=== PATIENT | female | born 1995 | race Caucasian/White ===

== ENCOUNTER 2016-04-06 13:56 | Observation (INO) ==
--- NOTE | 2016-04-06 15:13 | Emergency Department Note ---
Disposition Clinical Impression: UTI (urinary tract infection) Qualifiers: Urinary tract infection type: acute cystitis Hematuria presence: without hematuria Qualified Code(s): N30.00 - Acute cystitis without hematuria Qualifiers: Weeks of gestation: 10 weeks Qualified Code(s): Z3A.10 - 10 weeks gestation of Disposition: Admitted As Inpatient Referrals: Cristin Zhu REFRIGERATOR GLAZIER [Primary Care Provider] - Forms: Work/School Release, ED Satisfaction Letter Time of Disposition: 15:16 General Adult HPI - General Chief complaint: ED Abdominal Pain Stated complaint: needing IV ATB? got a call from someone Time Seen by Provider: 04/06/16 15:11 Source: patient Mode of arrival: ambulatory Limitations: no limitations Nursing Notes Reviewed: Yes Vital Signs Reviewed: Yes - History of Present Illness HPI Narrative: 20-year-old who is 10 weeks who was seen here for abdominal discomfort a few days back and had a urine culture done throughout pseudomonas aeruginosa. Consultation was obtained with STUDENT DEVELOPMENT COORDINATOR doctor Jennifer once the patient to receive ceftazidime 2 g Q8 HR. Onset (ago): day(s) Pain Scale: 0 - Related Data Home Medications Medication Instructions Recorded Confirmed TraMADol 08/03/15 Previous Rx's Medication Instructions Recorded OxyCODONE/APAP 5/325 [Percocet 1 each PO Q6HR PRN #10 tablet 08/03/15 5/325] Cephalexin [Keflex] 500 mg PO BID 10 Days 03/15/16 Allergies Allergy/AdvReac Type Severity Reaction Status Date / Time No Known Allergies Allergy Verified 03/15/16 03:01 Constitutional: Denies: fever, chills, weakness, weight change Eyes: Denies: eye pain, eye discharge, vision change ENT ED: Denies: ear pain, throat pain, dental pain, hearing loss, epistaxis, congestion, dysphagia Cardiovascular: Denies: chest pain, palpitations, dyspnea on exertion, edema, syncope Respiratory: Denies: cough, dyspnea, wheezes, hemoptysis, stridor Gastrointestinal: Denies: abdominal pain, nausea, vomiting, diarrhea, constipation, hematemesis, melena, hematochezia Genitourinary: Denies: dysuria, frequency, hematuria, discharge Musculoskeletal: Denies: back pain, neck pain, arthralgia, myalgia Integumentary: Denies: rash, abrasion, lesions Neurological: Denies: headache, weakness, numbness, paresthesias, confusion, abnormal gait, vertigo Psychiatric: Denies: anxiety, depression, suicidal thoughts, homicidal thoughts , auditory hallucinations, visual hallucinations Endocrine: Denies: fatigue Hematological/Lymphatic: Denies: easy bleeding, easy bruising Allergic/Immunologic: Denies: facial swelling, urticaria Past Medical History - Past Medical History Medical history: Reports: no medical history Psychiatric history: Reports: no psych history STUDENT DEVELOPMENT COORDINATOR history: Reports: no STUDENT DEVELOPMENT COORDINATOR history - Social History Smoking Status: Current every day smoker Smokeless Tobacco Status: No Alcohol use: Reports: none Drug use: Reports: none Physical Exam - General Limitations: no limitations General appearance: alert, in no apparent distress - Head Head exam: atraumatic, normocephalic, normal inspection - Eye Eye exam: Present: normal appearance, PERRL, EOMI - ENT ENT exam: normal exam, normal oropharynx, mucous membranes moist - Neck Neck exam: Present: normal inspection, full ROM, trachea midline - Chest Chest inspection: Present: normal inspection, symmetric chest wall rise - Respiratory Respiratory exam: Present: normal lung sounds bilaterally - Cardiovascular Cardiovascular exam: Present: regular rate, normal rhythm, normal heart sounds - Abdominal Exam Abdominal exam: Present: soft, Non-Tender. Absent: tenderness, distention, guarding, rebound, rigidity - Extremities Exam Extremities exam: Present: normal inspection, full ROM. Absent: tenderness, pedal edema - Expanded Lower Extremity Exam Neurovascular/Tendon exam: Absent: motor deficit, sensory deficit, tendon deficit Gait: observed and normal - Back Exam Back exam: Present: normal inspection, full ROM. Absent: tenderness - Neurological Exam Neurological exam: Present: alert, oriented X3 - Psychiatric Psychiatric exam: Present: normal affect, normal mood - Skin Skin exam: Present: warm, dry, intact, normal color Course - Reevaluation(s) Reevaluation #1: This is a 20-year-old who is approximately 10 weeks who had a urine culture done a couple days ago grew out pseudomonas aeruginosa's. STUDENT DEVELOPMENT COORDINATOR once the patient admitted for IV ceftazadine. Time: 15:15 - Consultations Consultation #1: Discussed with Dr. Rodriguez, admit to hospitalist. Time: 15:00 Consultation #2: Discussed with Dr. Ramos, admit. Time: 15:15 Vital Signs Temperature 98.7 F 01/24/17 14:22 Pulse Rate 84 04/06/16 14:22 Respiratory Rate 18 04/06/16 14:22 Blood Pressure 116/79 04/06/16 14:22 O2 Sat by Pulse Oximetry 99 04/06/16 14:22 Temperature 98.7 F 04/06/16 14:22 Pulse Rate 77 04/06/16 16:21 Respiratory Rate 18 04/06/16 14:22 Blood Pressure 110/70 04/06/16 16:21 O2 Sat by Pulse Oximetry 100 04/06/16 16:21 Oxygen Delivery Oxygen Delivery Room Air Medical Decision Making - Lab Data Result diagrams: 04/06/16 15:29 04/06/16 15:29 Lab Results 04/06/16 04/06/16 Range/Units 15:29 15:29 WBC 8.0 (4.3-11.1) K/mcL RBC 4.02 (3.82-4.97) M/mcL Hgb 12.3 (11.5-15.4) g/dL Hct 36.4 (35.3-44.9) % MCV 90.5 (83.0-100.0) fL MCH 30.6 (28.0-33.3) pg MCHC 33.8 (31.6-35.5) g/dL RDW 12.1 (11.5-14.5) % Plt Count 228 (140-400) K/mcL MPV 10.8 (9.4-12.4) fL Immature Gran % 0.4 (0-4) % Seg Neutrophils % 63.9 % Lymphocytes % 22.5 % Monocytes % 7.7 % Eosinophils % 5.0 % Basophils % 0.5 % Neutrophils # 5.1 (1.6-8.9) K/mcL Lymphocytes # 1.8 (0.6-4.6) K/mcL Monocytes # 0.6 (0.0-1.3) K/mcL Eosinophils # 0.4 (0.0-0.6) K/mcL Basophils # 0.0 (0.0-0.2) K/mcL Sodium 138 (136-145) mEq/L Potassium 3.5 (3.5-4.5) mEq/L Chloride 106 (98-109) mEq/L Carbon Dioxide 20 (19-29) mEq/L BUN 6 L (7-20) mg/dL Creatinine 0.60 (0.57-1.11) mg/dL Est GFR ( Amer) > 60 (> 60) Est GFR (Non-Af Amer) > 60 (> 60) BUN/Creatinine Ratio 10 (6-26) Glucose 86 (70-99) mg/dL Calculated Osmolality 283 (280-300) Calcium 9.3 (8.6-10.8) mg/dL
[2016-04-06 15:37] LABS: Basophils % 0.5 %; Eosinophils # 0.4 K/mcL (0.0-0.6); Hematocrit 36.4 % (35.3-44.9); Hemoglobin 12.3 g/dL (11.5-15.4); Immature Granulocytes % 0.4 % (0-4); Lymphocytes # 1.8 K/mcL (0.6-4.6); Lymphocytes % 22.5 %; Mean Corpuscular HGB Conc 33.8 g/dL (31.6-35.5); Mean Corpuscular Hemoglobin 30.6 pg (28.0-33.3); Mean Corpuscular Volume 90.5 fL (83.0-100.0); Mean Platelet Volume 10.8 fL (9.4-12.4); Monocytes # 0.6 K/mcL (0.0-1.3); Monocytes % 7.7 %; Neutrophils # 5.1 K/mcL (1.6-8.9); Platelet Count 228 K/mcL (140-400); Red Blood Count 4.02 M/mcL (3.82-4.97); Red Cell Distribution Width 12.1 % (11.5-14.5); Segmented Neutrophils % 63.9 %
[2016-04-06 15:50] LABS: BUN/Creatinine Ratio 10 (6-26); Blood Urea Nitrogen 6 mg/dL (7-20); Calcium 9.3 mg/dL (8.6-10.8); Carbon Dioxide 20 mEq/L (19-29); Chloride 106 mEq/L (98-109); Glucose 86 mg/dL (70-99); Osmolality,Calculated 283 (280-300); Potassium 3.5 mEq/L (3.5-4.5); Sodium 138 mEq/L (136-145); eGFR For African Americans > 60 (> 60); eGFR For Non-African Americans > 60 (> 60)
--- NOTE | 2016-04-06 17:21 | Internal Med History&Physical ---
Date of Encounter: 04/06/16 Time of Encounter: 17:21 Assessment and Plan (1) Abdominal pain affecting Current visit: No Status: Acute Patient developed daily intermittent lower abdominal pain 3 weeks ago. This could be secondary to multiple episodes of UTI. Will monitor response to antibiotics. (2) UTI (urinary tract infection) Current visit: Yes Status: Acute Complicated UTI due to . Recurrent UTI. 04/04/16: Urine culture grew susceptible Pseudomonas. Failed oral Keflex as outpatient. Dr. Rodriguez was called by ED physician, and recommended to start patient on Ceftazidime IV. Continue IV Ceftazidime for 1-2 days and then may switch to oral antibiotic. 20-year-old female admitted with complicated UTI due to , she will require IV antibiotics. Place in observation services. Qualifiers: Urinary tract infection type: acute cystitis Hematuria presence: without hematuria Qualified Code(s): N30.00 - Acute cystitis without hematuria (3) Current visit: Yes Status: Acute Patient is 10 weeks . Continue multivitamins. She follows up with Dr. Rodriguez. Will get further consultation Dr. Rodriguez to morning hospitalist. Qualifiers: Weeks of gestation: 10 weeks Qualified Code(s): Z3A.10 - 10 weeks gestation of (4) Tobacco abuse Current visit: Yes Status: Acute Patient counseled to quit smoking. She agrees. Internal Medicine - H&P: HPI Chief complaint: Abnormal urine culture and Lower abdominal pain for 2 weeks. Admitted From: Home Plans for Post Hospital Care: Home History of present illness: Ms. Chand is a 20 year old female with history of daily a smoking and who is currently 10 weeks . On March 15, patient presented to our ER with a chief complaint of lower abdominal pain. She was found to have have Escherichia coli UTI and was treated for that. Her abdominal pain persisted and 2 days ago she came again tell her ER. At that time she had urine culture done and was sent home on Keflex, tramadol and Percocet. Patient was called today after urine culture came back positive for curry susceptible Pseudomonas. She continues to have intermittent daily lower abdominal pain that lasts less than an hour. She developed nausea and vomiting during her and they have not changed in the past few days. No fever. No flank pain. Chills. No night sweats. No bleeding. No use of IV drugs. Past Med Surg Social Fam HX - Past Medical History Medical history: no medical history Psychiatric history: no psych history - Social History Smoking Status: Current every day smoker Smokeless Tobacco Status: No Alcohol use: none Drug use: none - Family History Mother Hx Family Endocrine Disorder: Yes (Diabetes.) Internal Medicine - H&P: Meds Pnv No.122/Iron/Folic Acid [ Multi Tablet] 1 tab PO DAILY 04/06/16 [ History] Allergies No Known Allergies Allergy (Verified 03/15/16 03:01) All Systems PM: A 10-system review of systems was performed and is negative for pertinent findings except as documented above in the HPI. - Constitutional Vitals: Temp Pulse Resp BP Pulse Ox 98.7 F 77 18 110/70 100 04/06/16 14:22 04/06/16 16:21 04/06/16 14:22 04/06/16 16:21 04/06/16 16:21 General appearance: Present: cooperative, A&O X 3, pleasant, no acute distress, answers questions appropriately - Head Head exam: Present: atraumatic, normocephalic - Eye Eye exam: Present: PERRL, sclera anicteric - ENT ENT exam: Present: mucous membranes moist - Neck Neck exam general surgery: Present: supple, trachea midline. Absent: lymphadenopathy - Respiratory Respiratory exam: Present: CTAB - Cardiovascular Cardiovascular exam: Present: RRR. Absent: systolic murmur - GI/Abdominal GI/Abdominal exam: Present: normal bowel sounds, soft, tenderness. Absent: distended - Extremities Exam Extremities exam: Present: radial pulses palpable and symetrical. Absent: pedal edema, tenderness - Back Exam Back exam: Present: normal inspection. Absent: CVA tenderness (L), CVA tenderness (R), muscle spasm - Neurological Exam Neurological exam: Present: alert, oriented X3, no focal deficits, strengths equal and symetr throughout. Absent: facial droop, speech deficit - Skin Additional comments: Multiple tattoos on her arms, back, and legs. She has a piercing on her medical site. No signs of infection. No rash. Internal Med - H&P Results - Labs CBC & Chem 7: 04/06/16 15:29 04/06/16 15:29 Labs: Short CBC 04/06/16 Range/Units 15:29 WBC 8.0 (4.3-11.1) K/mcL Hgb 12.3 (11.5-15.4) g/dL Hct 36.4 (35.3-44.9) % Plt Count 228 (140-400) K/mcL Neutrophils # 5.1 (1.6-8.9) K/mcL BMP 04/06/16 15:29 Sodium 138 Potassium 3.5 Chloride 106 Carbon Dioxide 20 BUN 6 L Creatinine 0.60 Glucose 86 Calcium 9.3
[2016-04-06] MEDS ORDERED: Acetaminophen 325 MG TABLET PO PRN (17:42)
[2016-04-06] MEDS ORDERED: 0.9 % Sodium Chloride 1,000 ML IVC SCH (17:45)
[2016-04-07 05:20] LABS: Basophils % 0.3 %; Eosinophils # 0.3 K/mcL (0.0-0.6); Eosinophils % 4.2 %; Hemoglobin 11.5 g/dL (11.5-15.4); Immature Granulocytes % 0.3 % (0-4); Lymphocytes # 2.7 K/mcL (0.6-4.6); Lymphocytes % 34.9 %; Mean Corpuscular HGB Conc 33.8 g/dL (31.6-35.5); Mean Corpuscular Hemoglobin 30.7 pg (28.0-33.3); Mean Corpuscular Volume 90.7 fL (83.0-100.0); Mean Platelet Volume 11.3 fL (9.4-12.4); Monocytes # 0.6 K/mcL (0.0-1.3); Monocytes % 7.5 %; Neutrophils # 4.1 K/mcL (1.6-8.9); Platelet Count 225 K/mcL (140-400); Red Blood Count 3.75 M/mcL (3.82-4.97); Red Cell Distribution Width 12.1 % (11.5-14.5); Segmented Neutrophils % 52.8 %
[2016-04-07 05:33] LABS: BUN/Creatinine Ratio 10 (6-26); Blood Urea Nitrogen 6 mg/dL (7-20); Calcium 8.8 mg/dL (8.6-10.8); Carbon Dioxide 19 mEq/L (19-29); Chloride 108 mEq/L (98-109); Glucose 100 mg/dL (70-99); Magnesium 1.7 mg/dL (1.6-2.6); Osmolality,Calculated 282 (280-300); Phosphorous 3.1 mg/dL (2.3-4.7); Potassium 3.5 mEq/L (3.5-4.5); Sodium 137 mEq/L (136-145); eGFR For African Americans > 60 (> 60); eGFR For Non-African Americans > 60 (> 60)
[2016-04-07] MEDS ORDERED: Prenatal Vit/FA 1 EACH TABLET PO SCH (09:00)
[2016-04-07 15:30] VITALS: BP 105/69
--- NOTE | 2016-04-07 16:55 | Discharge Summary ---
Date of Encounter: 04/07/16 Time of Encounter: 16:52 - Discharge Medications Prescriptions: Cefdinir [Omnicef] 300 mg PO BID #6 capsule Home Medications: Pnv No.122/Iron/Folic Acid [ Multi Tablet] 1 tab PO DAILY 04/06/16 [ History] Cefdinir [Omnicef] 300 mg PO BID #6 capsule 04/07/16 [Rx] Allergies/Adverse Reactions: Allergies No Known Allergies Allergy (Verified 03/15/16 03:01) Date of admission: 04/06/16 17:12 Primary care physician: Cristin Zhu CNP Discharging clinician: Dean Mckeon Anticipated date of discharge: 04/07/16 - Patient Status Disposition: Home, Self-Care Condition: Fair Functional capacity at discharge: independent ambulation Overall status at discharge: patient is back to baseline - Discharge Instructions Instructions: Cefdinir (By mouth), Urinary Tract Infection in Women (DC) Follow Up With: Cristin Zhu CNP [Primary Care Provider] - Forms: Work/School Release - Diet and Activity Activity: resume usual activities as tolerated Diet: advance to your usual diet Interval History: Ms. Chand is a 20 year old female with history of daily a smoking and who is currently 10 weeks . On March 15, patient presented to our ER with a chief complaint of lower abdominal pain. She was found to have have Escherichia coli UTI and was treated for that. Her abdominal pain persisted and 2 days ago she came again tell her ER. At that time she had urine culture done and was sent home on Keflex, tramadol and Percocet. Patient was called today after urine culture came back positive for curry susceptible Pseudomonas. She continues to have intermittent daily lower abdominal pain that lasts less than an hour. She developed nausea and vomiting during her and they have not changed in the past few days. No fever. No flank pain. Chills. No night sweats. No bleeding. No use of IV drugs. Hospital course: She was admitted for asymptomatic bacteriuria, urine culture grew Pseudomonas which was pansensitive. This was discussed with OB attending in-house, she was started on IV ceftazidime , she received 2 doses of IV ceftazidime while inpatient. She remained hemodynamically stable, afebrile, no leukocytosis and no urinary symptoms. Given history of recurrent UTI in the past and status, will treat asymptomatic bacteriuria with 3 more additional days of oral cefdinir. Patient is stable to be discharged home on oral antibiotics. Patient will follow up with her OB doctor as outpatient. Time spent discussing smoking cessation with patient: more than 10 minutes - Time Spent with Patient Total time spent providing and/or coordinating discharge services: Greater than 30 minutes - Constitutional Vitals: Temp Pulse Resp BP Pulse Ox 98.3 F 73 17 105/69 99 04/07/16 15:28 04/07/16 15:28 04/07/16 15:28 04/07/16 15:28 04/07/16 15:28 General appearance: Present: cooperative, A&O X 3, pleasant, no acute distress, answers questions appropriately Exam: General appearance: Present: cooperative, A&O X 3, pleasant, no acute distress, answers questions appropriately - Head Head exam: Present: atraumatic, normocephalic - Eye Eye exam: Present: PERRL, sclera anicteric - ENT ENT exam: Present: mucous membranes moist - Neck Neck exam general surgery: Present: supple, trachea midline. Absent: lymphadenopathy - Respiratory Respiratory exam: Present: CTAB - Cardiovascular Cardiovascular exam: Present: RRR. Absent: systolic murmur - GI/Abdominal GI/Abdominal exam: Present: normal bowel sounds, soft, tenderness. Absent: distended - Extremities Exam Extremities exam: Present: radial pulses palpable and symetrical. Absent: pedal edema, tenderness - Back Exam Back exam: Present: normal inspection. Absent: CVA tenderness (L), CVA tenderness (R), muscle spasm - Neurological Exam Neurological exam: Present: alert, oriented X3, no focal deficits, strengths equal and symetr throughout. Absent: facial droop, speech deficit - Skin Additional comments: Multiple tattoos on her arms, back, and legs. She has a piercing on her medical site. No signs of infection. No rash.
== END 2016-04-07 17:30 | disposition home or self-care (01) ==
LOC: 3BNU 13:56 → EMEROO 13:56 → SUATTDRO 17:12 → 3BNU 18:40
PROVIDERS: ADMIT Internal Medicine; ATTEND Internal Medicine Endocrinology, Diabetes & Metabolism

== ENCOUNTER → 2016-09-21 14:48 | Observation (INO) ==
[2016-09-21 13:53] LABS: Basophils % 0.3 %; Eosinophils # 0.1 K/mcL (0.0-0.6); Eosinophils % 0.8 %; Hemoglobin 11.1 g/dL (11.5-15.4); Lymphocytes # 2.4 K/mcL (0.6-4.6); Lymphocytes % 17.5 %; Mean Corpuscular HGB Conc 33.6 g/dL (31.6-35.5); Mean Corpuscular Hemoglobin 31.6 pg (28.0-33.3); Mean Platelet Volume 11.2 fL (9.4-12.4); Monocytes # 0.7 K/mcL (0.0-1.3); Neutrophils # 10.2 K/mcL (1.6-8.9); Platelet Count 206 K/mcL (140-400); Red Blood Count 3.51 M/mcL (3.82-4.97); Red Cell Distribution Width 12.4 % (11.5-14.5); Segmented Neutrophils % 75.4 %
[2016-09-21 13:54] LABS: Bilirubin,Urine Negative (Negative); Blood,Urine Negative (Negative); Color,Urine Yellow (Yellow); Glucose,Urine (UA) Normal (Normal); Ketones,Urine Negative (Negative); Leukocyte Esterase,Urine Trace (Negative); Nitrite,Urine Negative (Negative); Protein,Urine Negative (Neg-Trace); Specific Gravity,Urine 1.019 (1.010-1.025); Urobilinogen,Urine Normal (Normal)
[2016-09-21 13:57] LABS: Bacteria,Urine None Seen per hpf (None-Few); Hyaline Casts,Urine None Seen per lpf (None-Few); RBC,Urine 0-3 per hpf (0-3); Squamous Epithelial Cell,Urine Many per lpf (None-Few); WBC,Urine 0-3 per hpf (0-3)
[2016-09-21 14:07] LABS: Alanine Aminotransferase 7 Units/L (0-55); Aspartate Amino Transferase 11 Units/L (5-34); BUN/Creatinine Ratio 9 (6-26); Blood Urea Nitrogen 6 mg/dL (7-20); Clarity,Urine Clear (Clear); Lactate Dehydrogenase 131 Units/L (159-327); Uric Acid 4.1 mg/dL (2.6-6.0); eGFR For African Americans > 60 (> 60); eGFR For Non-African Americans > 60 (> 60)
--- NOTE | 2016-09-21 14:46 | Discharge Summary ---
Date of Encounter: 09/21/16 Time of Encounter: 14:46 - Discharge Diagnosis (1) 34 weeks gestation of Priority: Primary Status: Acute Comments: Patient presents to labor and delivery with c/o of headaches for several days, abdominal pain for several days, visual disturbances, and swelling of her hands and feet. She states positive movement. She denies epigastric pain, LOF, vaginal bleeding, cramping, and contractions. She states that she came to triage today because the swelling is new and she hadn't had that before. Not visualized upon physical exam. She states she has not taken any medication or tried to use caffeine for her headaches. She states she drank a lot of caffeine prior to and is no longer drinking as much. Encouraged patient to try tylenol and caffeine for headaches. PIH labs - WNL NST - reactive Serial blood pressures - WNL Discharge home with hypertension in education, kick counts, and labor precautions F/U as previously scheduled for routine care and as needed (2) Headache in Priority: Primary Status: Acute Comments: See 34 weeks of Qualifiers: Trimester: third trimester Qualified Code(s): O26.893 - Other specified related conditions, third trimester; R51 - Headache - Discharge Medications Home Medications: Pnv No.122/Iron/Folic Acid [ Multi Tablet] 1 tab PO DAILY 04/06/16 [ History] Cefdinir [Omnicef] 300 mg PO BID #6 capsule 04/07/16 [Rx] Allergies/Adverse Reactions: Allergies No Known Allergies Allergy (Verified 03/15/16 03:01) Data Procedures and tests throughout hospitalization: Laboratory Tests 09/21/16 09/21/16 09/21/16 13:30 13:30 13:30 WBC 13.5 H RBC 3.51 L Hgb 11.1 L Hct 33.0 L MCV 94.0 MCH 31.6 MCHC 33.6 RDW 12.4 Plt Count 206 MPV 11.2 Immature Gran % 1.0 Seg Neutrophils % 75.4 Lymphocytes % 17.5 Monocytes % 5.0 Eosinophils % 0.8 Basophils % 0.3 Neutrophils # 10.2 H Lymphocytes # 2.4 Monocytes # 0.7 Eosinophils # 0.1 Basophils # 0.0 BUN 6 L Creatinine 0.69 Est GFR ( Amer) > 60 Est GFR (Non-Af Amer) > 60 BUN/Creatinine Ratio 9 Uric Acid 4.1 AST 11 ALT 7 Lactate Dehydrogenase 131 L Urine Color Yellow Urine Clarity Clear Urine pH 7.0 Ur Specific [place] 1.019 Urine Protein Negative Urine Glucose (UA) Normal Urine Ketones Negative Urine Blood Negative Urine Nitrite Negative Urine Bilirubin Negative Urine Urobilinogen Normal Ur Leukocyte Esterase Trace H Urine Microscopic RBC 0-3 Urine Microscopic WBC 0-3 Ur Squamous Epith Cells Many H Urine Bacteria None Seen Hyaline Casts None Seen Labs on day of discharge: Labs from last 24 hours 09/21/16 09/21/16 09/21/16 13:30 13:30 13:30 WBC 13.5 H RBC 3.51 L Hgb 11.1 L Hct 33.0 L MCV 94.0 MCH 31.6 MCHC 33.6 RDW 12.4 Plt Count 206 MPV 11.2 Immature Gran % 1.0 Seg Neutrophils % 75.4 Lymphocytes % 17.5 Monocytes % 5.0 Eosinophils % 0.8 Basophils % 0.3 Neutrophils # 10.2 H Lymphocytes # 2.4 Monocytes # 0.7 Eosinophils # 0.1 Basophils # 0.0 BUN 6 L Creatinine 0.69 Est GFR ( Amer) > 60 Est GFR (Non-Af Amer) > 60 BUN/Creatinine Ratio 9 Uric Acid 4.1 AST 11 ALT 7 Lactate Dehydrogenase 131 L Urine Color Yellow Urine Clarity Clear Urine pH 7.0 Ur Specific [place] 1.019 Urine Protein Negative Urine Glucose (UA) Normal Urine Ketones Negative Urine Blood Negative Urine Nitrite Negative Urine Bilirubin Negative Urine Urobilinogen Normal Ur Leukocyte Esterase Trace H Urine Microscopic RBC 0-3 Urine Microscopic WBC 0-3 Ur Squamous Epith Cells Many H Urine Bacteria None Seen Hyaline Casts None Seen Date of admission: 09/21/16 13:02 Primary care physician: Cristin Zhu CNP Discharging clinician: Lidia Barrios Anticipated date of discharge: 09/21/16 - Patient Status Disposition: Home, Self-Care Condition: Good Functional capacity at discharge: independent ambulation - Discharge Instructions Follow Up With: Cristin Zhu CNP [Primary Care Provider] - Lidia Barrios CNM [Advanced Practice Nurse] - Additional Instructions: LABOR AND DELIVERY DISCHARGE INSTRUCTIONS Signs and Symptoms to be Reported to your Doctor Immediately: * Sudden gush, continuous or intermittent lead of fluid from vagina (note the time of gush and color of fluid) * Onset of bright red vaginal bleeding with or without pain (if you had a vaginal exam during this visit you may notice some dark red spotting. This is normal.) * Lower abdominal cramping or backache that is premenstrual-like feeling. * More than 6 contractions in one hour. * Burning during urination, having to urinate more frequently or pain in your mid-back. * A change in the baby's activity. This could be an increase or decrease in activity. * Severe headache which does not go away with tylenol. * Sudden swelling in the face, hands, arms and/or legs. * Upper abdominal pain - sometimes associated with heartburn or nausea and is not relieved by Maalox, Mylanta or Tums. * Dizziness or blurred vision or visual disturbances (seeing stars/lights). * Kick Counts One hour after a meal, lay down on one side in a quiet place. Count the number of adrienne the baby moves during an hour. If less than 6 movements, notify your physician. Diet: *Force fluids - 8-10 tall glasses of fluid per day. May include popsicles and jello. 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 Reactive NST - appropriate for gestational age - Extremities Exam Extremities exam IM: Present: normal capillary refill, normal inspection, radial pulses palpable and symetrical - Neurological Exam Neurological exam: alert, oriented X3, reflexes normal - VTE Reasons for not Prescribing Prophylaxis: Treatment not Indicated - Low risk for VTE
== END | disposition home or self-care (01) ==
LOC: 1NENULAB
PROVIDERS: ADMIT Obstetrics & Gynecology; ATTEND Obstetrics & Gynecology

== ENCOUNTER → 2016-09-30 18:07 | Observation (INO) ==
--- NOTE | 2016-09-30 16:09 | Discharge Summary ---
Date of Encounter: 09/30/16 Time of Encounter: 16:12 - Discharge Diagnosis (1) 35 weeks gestation of Priority: Primary Status: Acute Comments: Patient states positive movement Denies headache, vision changes, and epigastric pain POC per consult with Dr Christensen. (2) Vaginal discharge during in third trimester Priority: Primary Status: Acute Comments: Patient states she was leaking vaginal fluid this afternoon around 1 pm that leaked through her pants. She states positive movement. She denies contractions, epigastric pain, headache, and visual disturbances. She denies suprapubic pain and recent intercourse. SSE - negative for pooling, cervix visually closed, small amount of freitas/white vaginal discharge Vaginosis panel - pending; will send Rx to patient's pharmacy of choice if needed. Urine - contaminated NST - reactive Discharge home after lab results available Discharge home with labor precautions F/U in office as scheduled. - Discharge Medications Home Medications: Pnv No.122/Iron/Folic Acid [ Multi Tablet] 1 tab PO DAILY 04/06/16 [ History] Allergies/Adverse Reactions: Allergies No Known Allergies Allergy (Verified 03/15/16 03:01) Date of admission: 09/30/16 15:42 Primary care physician: Cristin Zhu CNP Discharging clinician: Lidia Barrios Anticipated date of discharge: 09/30/16 - Patient Status Disposition: Home, Self-Care Condition: Good Functional capacity at discharge: independent ambulation Overall status at discharge: patient is not back to baseline - Discharge Instructions Follow Up With: Cristin Zhu CNP [Primary Care Provider] - Ludmila Cruz CNM [Non-Partnered Physician] - - Diet and Activity Activity: resume usual activities as tolerated Diet: regular diet 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 No pooling, no ferning, small amount of freitas/white vaginal discharge noted. No contractions per monitor or patient report FHR 160 moderate variability category I - Extremities Exam Extremities exam IM: Present: normal capillary refill, normal inspection, radial pulses palpable and symetrical - Neurological Exam Neurological exam: alert, oriented X3, reflexes normal
[2016-09-30 17:11] LABS: Bilirubin,Urine Negative (Negative); Blood,Urine Negative (Negative); Clarity,Urine Cloudy (Clear); Color,Urine Dark Yellow (Yellow); Glucose,Urine (UA) Normal (Normal); Ketones,Urine Trace mg/dL (Negative); Leukocyte Esterase,Urine Small (Negative); Nitrite,Urine Negative (Negative); Protein,Urine Trace mg/dL (Neg-Trace); Specific Gravity,Urine > 1.030 (1.010-1.025); Urobilinogen,Urine Normal (Normal)
[2016-09-30 17:13] LABS: Bacteria,Urine Moderate per hpf (None-Few); Hyaline Casts,Urine Few per lpf (None-Few); Squamous Epithelial Cell,Urine Many per lpf (None-Few); WBC,Urine 15-30 per hpf (0-3)
[2016-09-30 17:31] LABS: RBC,Urine 0-3 per hpf (0-3)
[2016-09-30 18:03] LABS: Candida DNA Not Detected (Not Detect); Gardnerella DNA Not Detected (Not Detect); Trichomonas DNA Not Detected (Not Detect)
[~2016-09-30 18:07] MED LIST: Prenatal Vit/FA 1 EACH TABLET PO SCH
== END | disposition home or self-care (01) ==
LOC: 1NENULAB
PROVIDERS: ADMIT Obstetrics & Gynecology; ATTEND Obstetrics & Gynecology

== ENCOUNTER → 2016-10-13 02:18 | Observation (INO) ==
--- NOTE | 2016-10-12 20:47 | OB/GYN History & Physical ---
Date of Encounter: 10/12/16 Time of Encounter: 20:41 Assessment and Plan (1) 37 weeks gestation of Current visit: Yes Status: Acute Patient admitted for observation for labor evaluation History of Present Illness Chief complaint: Contractions HPI: Ms. Chand is a 21 year old female is 21 y/o at 37w3d presents to labor and delivery with complaints of contractions that started around 1200 today. Patient denies LOF or VB. Patient reports +FM. Patient reports intercourse 2 days ago. Blood type:O+, Rubella: Immune, Hep B: nonreactive, GBS: negative. SVE last week in office was /-1. Past Med Surg Social Fam HX - Past Medical History Source: patient Medical history: no medical history Psychiatric history: no psych history - Past Surgical History Surgical History: other - Social History Smoking Status: Former smoker Smokeless Tobacco Status: No Alcohol use: none Drug use: none Occupational status: employed Current living situation: Home - Independent Activity Level: Independent ambulation Recent Out of Country Travel Within the Last 8 Weeks: No Exposure or Possible Exposure to Illness During Travel: No - Family History Mother Living Status: Still Living Hx Family Cardiac Disorders: No Hx Family Respiratory Disorders: No Hx Family Cancer: No Hx Family GI Disorders: No Hx Family Endocrine Disorder: No Hx Family Neuromuscular Disorders: No Hx Family Neurologic Disorders: No Hx Family HEENT Disorders: No Hx Family Autoimmune Disorders: No Father Hx Family Endocrine Disorder: Yes (DM) Obstetrical History - Pregnancies : 2 Para: 1 Term: 1 : 0 Ab's: 0 Livin Medications and Allergies Pnv No.122/Iron/Folic Acid [ Multi Tablet] 1 tab PO DAILY 04/06/16 [ History] Allergies No Known Allergies Allergy (Verified 10/12/16 20:31) Review of System OB - Constitutional Constitutional ROS IM: no chills, no fever(s), no headache(s) - Cardiovascular Cardiovascular: no chest pain, no lightheadedness, no palpitations, no pedal edema, no slow heart rate, no syncope - Gastrointestinal Gastrointestinal: no abdominal pain, no constipation, no cramping, no diarrhea, no heartburn, no nausea, no vomiting - Genitourinary Genitourinary: no abnormal vaginal bleeding, no dysuria, no flank pain, no urinary frequency, no urinary incontinence, no urinary urgency, no vaginal discharge, no vaginal odor Exam - Constitutional Constitutional: well developed, well nourished, no acute distress, average body habitus - HEENT HEENT: Normocephaly, Mucus Membranes Moist - Neck Neck exam: full ROM, supple - Lungs Respiratory exam: CTAB - Cardiovascular Cardiovascular exam: RRR, +S1, +S2 - Abdomen Abdomen: Present: bowel sounds normal, gravid, non tender - Extremities Extremities exam: full ROM, normal capillary refill Deep Tendon Reflex Grade: 2+ Normal - Cervix Dilation: 1 Effacement: 60 Station: -1 - Uterus Uterus exam: Present: normal size, normal contour - Anus/Rectum Anus/Rectum: Present: normal perianal skin - Comments Comments: FHR 130 bpm moderate variability +15x15 accels no decels noted. Contractions 2- 3 min apart. CAt. 1 tracing. Results All other labs normal. - VTE Reasons for not Prescribing Prophylaxis: Treatment not Indicated - Low risk for VTE
--- NOTE | 2016-10-12 21:55 | OB Labor Progress Note ---
Date of Encounter: 10/12/16 Time of Encounter: 21:53 Labor Progress Note - Subjective Subjective: Called to patient's room. Patient had some leaking when getting up to go to the bathroom. Patient denies any bleeding. Reports contractions are getting stronger. - Cervix Cervix: 2.570/-1 - Heart Tones Heart Tones: 145 bpm moderate variability +15x15 accels no decels noted. Cat. 1 tracing - [place]: 2-2.5 min apart - Interventions Interventions: Speculum exam: negative pooling, negative nitrazine, Negative Fern. SVE 2.570/- 1 - Plan Plan: Continue observation
--- NOTE | 2016-10-12 23:37 | OB Labor Progress Note ---
Date of Encounter: 10/12/16 Time of Encounter: 23:35 Labor Progress Note - Subjective Subjective: Patient reports contractions are still strong. - Cervix Cervix: 2.5/70/-1 - Heart Tones Heart Tones: 130 bpm moderate variability +15x15 accels no decels noted. Cat. 1 tracing - [place]: 2-3 min apart - Interventions Interventions: SVE, no cervical change. Bloody show noted. - Plan Plan: Morphine 10mg SQ x1 for rest continue to monitor at this time If patient's pain is better and no cervical change will discharge home.
--- NOTE | 2016-10-13 02:12 | Discharge Summary ---
Date of Encounter: 10/13/16 Time of Encounter: 02:11 - Discharge Diagnosis (1) 37 weeks gestation of Priority: Primary Status: Acute Comments: Patient here for labor evaluation. Patient progressed from 1cm-3cm. Patient reports contractions are not as intense and she would prefer to go home at this time. Patient is scheduled in office on 10/14/2016 - Discharge Medications Home Medications: Pnv No.122/Iron/Folic Acid [ Multi Tablet] 1 tab PO DAILY 04/06/16 [ History] Allergies/Adverse Reactions: Allergies No Known Allergies Allergy (Verified 10/12/16 20:31) Date of admission: 10/12/16 20:03 Discharging clinician: Lisa Salgado Anticipated date of discharge: 10/13/16 - Patient Status Disposition: Home, Self-Care Condition: Good Functional capacity at discharge: independent ambulation - Discharge Instructions Follow Up With: Lisa Salgado CNM [Non-Partnered Physician] - - Diet and Activity Activity: increase activity as tolerated Diet: regular diet 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 Contraction 3-4 min apart. SVE 3/70/-1. - VTE Reasons for not Prescribing Prophylaxis: Treatment not Indicated - Low risk for VTE
[~2016-10-13 02:18] MED LIST changes: +*HR* Morphine 10 MG/ML VIAL SQ ONE; -Prenatal Vit/FA 1 EACH TABLET PO SCH
== END | disposition home or self-care (01) ==
LOC: 1NENULAB
PROVIDERS: ADMIT Advanced Practice Midwife; ATTEND Advanced Practice Midwife

== ENCOUNTER → 2016-10-13 17:00 | Observation (INO) ==
--- NOTE | 2016-10-13 16:48 | Discharge Summary ---
Date of Encounter: 10/13/16 Time of Encounter: 16:48 - Discharge Diagnosis (1) False labor after 37 completed weeks of gestation Priority: Primary Status: Acute Comments: Patient arrived to labor and delivery with complaints of contractions every 1.5- 3 minutes. She was seen last night in triage with the same c/o. She states positive movement and denies LOF, Vaginal bleeding, Headache, visual changes, and epigastric pain. She was sent home for therapeutic rest after receiving a dose of morphine. Serial vaginal exams - no change /- posterior, external os soft, internal os moderately firm Offered patient IV hydration - patient declined. Encourage oral hydration and good po nutrition as tolerated Offered patient ambien for therapeutic rest, patient declined. Sent home with an Rx for Vistaril. Patient discharged with labor precautions. Patient has appointment with Lisa at 0800 tomorrow morning. (2) 37 weeks gestation of Priority: Secondary Status: Acute Comments: Follow up with regular care. - Discharge Medications Prescriptions: hydrOXYzine HCl [Hydroxyzine HCl] 25 mg PO Q8HR PRN #5 tab PRN Reason: Insomnia Home Medications: Pnv No.122/Iron/Folic Acid [ Multi Tablet] 1 tab PO DAILY 04/06/16 [ History] hydrOXYzine HCl [Hydroxyzine HCl] 25 mg PO Q8HR PRN #5 tab 10/13/16 [Rx] Allergies/Adverse Reactions: Allergies No Known Allergies Allergy (Verified 10/12/16 20:31) Date of admission: 10/13/16 15:03 Primary care physician: Cristin Houston, Discharging clinician: Lidia Barrios Anticipated date of discharge: 10/13/16 - Patient Status Disposition: Home, Self-Care Condition: Good Functional capacity at discharge: independent ambulation - Discharge Instructions Follow Up With: Cristin Houston MD [Primary Care Provider] - Lisa Salgado CNM [Non-Partnered Physician] - - Diet and Activity Activity: resume usual activities as tolerated Diet: regular diet 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 Positive movement. FHTs 130 with moderate variability and 15 x 15 accels. no decels. contractions palpate mild uterus palpates soft between - Extremities Exam Extremities exam IM: Present: normal capillary refill, normal inspection, pedal edema (1+), radial pulses palpable and symetrical - Neurological Exam Neurological exam: alert, oriented X3 - VTE Reasons for not Prescribing Prophylaxis: Treatment not Indicated - Low risk for VTE
== END | disposition home or self-care (01) ==
LOC: 1NENULAB
PROVIDERS: ADMIT Obstetrics & Gynecology; ATTEND Obstetrics & Gynecology

== ENCOUNTER → 2016-10-17 19:30 | Observation (INO) ==
--- NOTE | 2016-10-20 13:14 | Discharge Summary ---
Date of Encounter: 10/17/16 Time of Encounter: 19:00 - Discharge Diagnosis (1) False labor after 37 completed weeks of gestation Priority: Primary Status: Resolved - Discharge Medications Home Medications: Pnv No.122/Iron/Folic Acid [ Multi Tablet] 1 tab PO DAILY 04/06/16 [ History] Allergies/Adverse Reactions: Allergies No Known Allergies Allergy (Verified 10/12/16 20:31) Date of admission: 10/17/16 18:38 Primary care physician: PCP NONE - Patient Status Disposition: Home, Self-Care Condition: Good Functional capacity at discharge: independent ambulation Overall status at discharge: patient is progressing back to baseline - Discharge Instructions Follow Up With: NONE,PCP [Primary Care Provider] - Additional Instructions: LABOR AND DELIVERY DISCHARGE INSTRUCTIONS Signs and Symptoms to be Reported to your Doctor Immediately: * Sudden gush, continuous or intermittent lead of fluid from vagina (note the time of gush and color of fluid) * Onset of bright red vaginal bleeding with or without pain (if you had a vaginal exam during this visit you may notice some dark red spotting. This is normal.) * Lower abdominal cramping or backache that is premenstrual-like feeling. * More than 6 contractions in one hour. * Burning during urination, having to urinate more frequently or pain in your mid-back. * A change in the baby's activity. This could be an increase or decrease in activity. * Severe headache which does not go away with tylenol. * Sudden swelling in the face, hands, arms and/or legs. * Upper abdominal pain - sometimes associated with heartburn or nausea and is not relieved by Maalox, Mylanta or Tums. * Dizziness or blurred vision or visual disturbances (seeing stars/lights). * Kick Counts One hour after a meal, lay down on one side in a quiet place. Count the number of adrienne the baby moves during an hour. If less than 6 movements, notify your physician. Diet: *Force fluids - 8-10 tall glasses of fluid per day. May include popsicles and jello. 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
== END | disposition home or self-care (01) ==
LOC: 1NENULAB
PROVIDERS: ADMIT Obstetrics & Gynecology; ATTEND Obstetrics & Gynecology

== ENCOUNTER 2016-10-22 06:00 | Inpatient (IN) ==
[2016-10-23] MEDS ORDERED: Ondansetron 4 MG/2 ML VIAL IVP PRN (05:57)
[2016-10-23] MEDS ORDERED: Metoclopramide 10 MG/2 ML VIAL IVP PRN (05:57)
[2016-10-23] MEDS ORDERED: Famotidine 20 MG/2 ML VIAL IVP PRN (05:57)
[2016-10-23] MEDS ORDERED: Naloxone 0.4 MG/ML INJ IVP PRN (05:57)
[2016-10-23] MEDS ORDERED: Ringers Solution, Lactated 1,000 ML IVC SCH (06:00)
[2016-10-23] MEDS ORDERED: Oxytocin 20 units/ LR 1000 mL 20 UNIT/1,000 ML BAG IVC SCH ×2 (06:00→16:42)
[2016-10-23 06:35] LABS: Basophils % 0.2 %; Eosinophils # 0.1 K/mcL (0.0-0.6); Hematocrit 32.7 % (35.3-44.9); Hemoglobin 11.3 g/dL (11.5-15.4); Immature Granulocytes % 1.2 % (0-4); Lymphocytes # 3.6 K/mcL (0.6-4.6); Lymphocytes % 26.4 %; Mean Corpuscular HGB Conc 34.6 g/dL (31.6-35.5); Mean Corpuscular Hemoglobin 32.5 pg (28.0-33.3); Mean Platelet Volume 11.8 fL (9.4-12.4); Monocytes # 0.7 K/mcL (0.0-1.3); Monocytes % 5.3 %; Platelet Count 195 K/mcL (140-400); Red Blood Count 3.48 M/mcL (3.82-4.97); Red Cell Distribution Width 12.2 % (11.5-14.5); Segmented Neutrophils % 65.9 %
--- NOTE | 2016-10-23 07:39 | OB/GYN History & Physical ---
Date of Encounter: 10/23/16 Time of Encounter: 07:33 Assessment and Plan (1) 39 weeks gestation of Current visit: Yes Status: Acute Patient here for scheduled IOL Pitocin per protocol Nubain or epidural for pain medication History of Present Illness Chief complaint: Patient here for scheduled IOL HPI: Ms. Chand is a 21 year old female at 39w0d presents to labor and delivery for scheduled IOL. Patient reports +FM and irregular contractions. Patient denies LOF and VB. Blood type: O+, Rubella: Immune, Hep B: nonreactive, GBS: Negative. Past Med Surg Social Fam HX - Past Medical History Source: patient Medical history: no medical history Psychiatric history: no psych history - Past Surgical History Surgical History: other - Social History Smoking Status: Former smoker Smokeless Tobacco Status: No Alcohol use: none Drug use: none Current living situation: Home - Independent Activity Level: Independent ambulation Recent Out of Country Travel Within the Last 8 Weeks: No Exposure or Possible Exposure to Illness During Travel: No - Family History Mother Adopted: No Living Status: Still Living Hx Family Cardiac Disorders: No Hx Family Respiratory Disorders: No Hx Family Cancer: No Hx Family GI Disorders: No Hx Family Endocrine Disorder: No Hx Family Neuromuscular Disorders: No Hx Family Neurologic Disorders: No Hx Family HEENT Disorders: No Hx Family Autoimmune Disorders: No Father Adopted: No Living Status: Still Living Hx Family Cardiac Disorders: No Hx Family Respiratory Disorders: No Hx Family Cancer: No Hx Family GI Disorders: No Hx Family Genitourinary Disorders: No Hx Family Endocrine Disorder: Yes (diabetes) Hx Family Musculoskeletal Disorders: No Hx Family Neuromuscular Disorders: No Hx Family Neurologic Disorders: No Hx Family HEENT Disorders: No Hx Family Autoimmune Disorders: No Hx Family Reproductive Disorders: No Hx Family Psychosocial Disorders: No Hx Family Medical Disorders: No Obstetrical History - Pregnancies : 2 Para: 1 Term: 1 : 0 Ab's: 0 Livin Medications and Allergies Pnv No.122/Iron/Folic Acid [ Multi Tablet] 1 tab PO DAILY 04/06/16 [ History] Allergies No Known Allergies Allergy (Verified 10/12/16 20:31) Review of System OB - Constitutional Constitutional ROS IM: no chills, no fever(s), no headache(s) - Cardiovascular Cardiovascular: no lightheadedness, no palpitations, no syncope - Respiratory Respiratory: no dyspnea - Gastrointestinal Gastrointestinal: no abdominal pain, no cramping, no diarrhea, no heartburn, no nausea, no vomiting - Genitourinary Genitourinary: no abnormal vaginal bleeding, no dysuria, no flank pain, no urinary frequency, no vaginal discharge, no vaginal odor Exam - Constitutional Constitutional: well developed, well nourished, no acute distress, average body habitus - HEENT HEENT: Normocephaly, Mucus Membranes Moist - Neck Neck exam: full ROM, supple - Lungs Respiratory exam: CTAB - Cardiovascular Cardiovascular exam: RRR, +S1, +S2 - Abdomen Abdomen: Present: bowel sounds normal, gravid, non tender - Extremities Extremities exam: full ROM, normal capillary refill, normal inspection Deep Tendon Reflex Grade: 2+ Normal - Cervix Dilation: 3 Effacement: 70 Station: -1 - Anus/Rectum Anus/Rectum: Present: normal perianal skin (FHR 135 bpm moderate variability + 15x15 accel no decels noted Cat 1 tracing. Contractions 1-2 min apart) Results Result Diagrams: 10/23/16 06:25 Abnormal lab results WBC 13.7 K/mcL (4.3-11.1) H 10/23/16 06:25 RBC 3.48 M/mcL (3.82-4.97) L 10/23/16 06:25 Hgb 11.3 g/dL (11.5-15.4) L 10/23/16 06:25 Hct 32.7 % (35.3-44.9) L 10/23/16 06:25 Neutrophils # 9.0 K/mcL (1.6-8.9) H 10/23/16 06:25 All other labs normal. - VTE Reasons for not Prescribing Prophylaxis: Treatment not Indicated - Low risk for VTE
[2016-10-23] MEDS ORDERED: Epidural Premix (fent/bupiv) 110 ML EP SCH (07:45)
[2016-10-23] MEDS ORDERED: Epidural Premix (fent/bupiv) 110 ML EP ONE (07:46)
[2016-10-23] MEDS ORDERED: *HR* Nalbuphine 20 MG/ML AMPUL IVP PRN (07:55)
--- NOTE | 2016-10-23 08:28 | Anesthesia Evaluation PreOp ---
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: Denies Any Significant HX, Other (pt states h/o scoliosis but no issues with previous epidural) Other Medical History: Denies Any Significant HX Anesthesia History: No Prior Anesthetic Complications, Past Anesthesia Alcohol Use: none Drug use: none Medications and Allergies Pnv No.122/Iron/Folic Acid [ Multi Tablet] 1 tab PO DAILY 04/06/16 [ History] Allergies No Known Allergies Allergy (Verified 10/12/16 20:31) - Meds/Allergy Pre-op Review Medications Reviewed: Yes Allergies Reviewed: Yes Beta Blockers on Current Med List: No Anesthesia Results - Labs 10/23/16 06:25 Anesthesia Exam O2 Sat Height 1.75 m Weight 94.3 kg fhr 120's Height: 1.75 Weight: 94 - HEENT Pupil (Motor): Pupils equal, EOMI Mallampati: I Teeth: Normal Oral Opening: Greater than 3 (multiple oral piercings, pt asked to remove them) - TIME STUDY CLERK LOC: Oriented TIME STUDY CLERK Motor: Normal RUE, Normal LUE, Normal RLE, Normal LLE, Normal Face TIME STUDY CLERK Sensory: Normal: RUE, LUE, RLE, LLE, Face - Cardiac Rhythm: Regular Murmur: None - Pulmonary Breath Sounds: bilateral Clear Respiratory Effort: Symmetrical Anesthesia Assess/Plan ASA Score: 2 Modified Daren Scale for Level of Consciousness: Cooperative, oriented, and tranquil Anesthetic Plan: Regional Monitoring Plan: Standard Monitors Recovery Plan: Other
--- NOTE | 2016-10-23 09:01 | Anesthesia Procedures ---
Date of Encounter: 10/23/16 Time of Encounter: 08:58 Procedures: Anesthesia - Epidural/Spinal Patient ID/Chart reviewed: Yes Patient examined: Yes OB Eval: Gestational age: 39 OB Eval: : 2 OB Eval: Hx Para: 1 OB Eval: Dilated at (cm): 4 OB Eval: Contractions: Non-stressed pattern Consent Obtained: Yes Supplemental Oxygen: None/Room Air Site Prep: Aseptic Technique, Sterile prep and drape, Povidone-Iodine 1% Patient position: upright Local Anesthetic: Lidocaine 1% Amount of Local Anesthetic used: 2 Touhy Needle Gauge: 19 Touhy Needle Depth (cm): 9 Catheter Depth at Skin (cm): 12 Test Dose (1.5% Lido + Epi): Volume given (mls): 3 (no heme, no tinnitus, no metallic taste) Test Dose Result: Negative Loading Dose: 0.25% Marcaine (mls): 10 (5/2.5/2.5) Loading Dose Administered: Thru Catheter Infusion Med: 0.125% Bupivacaine w/ 2 mcg/ml Fentanyl Infusion Rate (mls/hr): [address]: Tegaderm, Tape Interspace Used: L4-L5 Loss of Resistance (RAY): Yes Blood: No CSF: No Paresthesia: No Vitals + FHT's: fhr 120's-130's throughout, pt hds
--- NOTE | 2016-10-23 09:34 | OB Labor Progress Note ---
Date of Encounter: 10/23/16 Time of Encounter: 09:33 Labor Progress Note - Subjective Subjective: Patient resting comfortably with epidural in place. discussed POC with patient. Patient denies any questions or concerns. - Cervix Cervix: 4/90/-1 - Heart Tones Heart Tones: 120 bpm moderate variability +15x15 accels no decels noted. CAt 1 tracing - [place]: 1-3 min apart - Interventions Interventions: SVE, Patient repositioned - Plan Plan: Continue labor management.
[2016-10-23] MEDS ORDERED: 0.9 % Sodium Chloride 1,000 ML ONE (12:33)
--- NOTE | 2016-10-23 12:41 | OB Labor Progress Note ---
Date of Encounter: 10/23/16 Time of Encounter: 12:39 Labor Progress Note - Subjective Subjective: Patient comfortable with epidural in place. - Cervix Cervix: 7.5/100/0 - Heart Tones Heart Tones: 120 bpm moderate variability, variables noted. - [place]: 2-3 min apart - Interventions Interventions: SVE, FSE, patient repositioned, Pitocin off, O2 mask applied. Dr. Persaud notified - Plan Plan: Continue labor management
--- NOTE | 2016-10-23 13:35 | OB/GYN Procedure Note ---
Delivery - Delivery Date: 10/23/16 Provider: Lisa Salgado Intrapartum events: none Delivery induction: AROM, oxytocin Delivery augmentation: rupture of membranes, pitocin Delivery monitor: external FHT, external uterine, internal FHT, internal uterine Anesthesia: epidural Estimated Blood Loss: 200 - (s) A Delivery Date: 10/23/16 Delivery Time: 13:09 Presentation: vertex Position: CHARO Route of delivery: Gender: Male Viability: Viable Pounds: 5 Ounces: 10 at 1 minute: 8 at 5 mins: 9 Shoulder Dystocia: not encountered Specimens collected: cord blood Placenta: spontaneous Cord: 3 umbilical vessels - Repair Episiotomy: none Laceration Description: None - Complications Delivery complications: none - Disposition Mom disposition: stable in LDR Point Clear disposition: stable in LDR - Comments Comments: Patient complete and +2 station. Under maternal effort patient spontaneously delivered a viable male over an intact perineum. No nuchal, no meconium or shoulder dystocia was encountered. Infant was placed on maternal abdomen. Cord was clamped and cut after pulsation ceased. Placenta delivered spontaneously and intact. pericare was provided. Patient desires tubal ligation tomorrow and will be added to add on list for Dr. Moser. Patient to be NPO at midnight.
[2016-10-23] MEDS ORDERED: *HR* HYDROcodone/Acet 5/325 mg TABLET PO PRN (16:42)
[2016-10-23] MEDS ORDERED: Ibuprofen 600 MG TABLET PO PRN (16:42)
[2016-10-23] MEDS ORDERED: Measles/Mumps/Rubella Vacc 0.5 ML VIAL SQ PRN (16:42)
[2016-10-23] MEDS ORDERED: Acetaminophen 325 MG TABLET PO PRN (16:42)
[2016-10-23] MEDS ORDERED: Benzocaine/Menthol 56 GM AEROSOL SPRAY TP PRN (16:42)
--- NOTE | 2016-10-24 08:12 | Discharge Summary ---
Outpatient Proc Discharge Plan - Plan Additional Instructions: please keep follow-up appt. Prescriptions: Ibuprofen [Motrin] 600 mg PO Q6HR PRN #40 tab PRN Reason: Cramping Oxycodone HCl/Acetaminophen [Percocet 5-325 mg Tablet] 1 each PO Q4H PRN #25 tablet PRN Reason: post op pain Home Medications: Pnv No.122/Iron/Folic Acid [ Multi Tablet] 1 tab PO DAILY 04/06/16 [ History] Ibuprofen [Motrin] 600 mg PO Q6HR PRN #40 tab 10/24/16 [Rx] Oxycodone HCl/Acetaminophen [Percocet 5-325 mg Tablet] 1 each PO Q4H PRN #25 tablet 10/24/16 [Rx]
--- NOTE | 2016-10-24 08:17 | Discharge Summary ---
Date of Encounter: 10/24/16 Time of Encounter: 08:17 - Discharge Diagnosis (1) (normal spontaneous vaginal delivery) Priority: Primary Status: Acute Comments: Doing well without c/o. (2) tubal ligation planned Priority: Secondary Status: Acute Comments: Consent obtained, pt aware of operative risks and permanence of procedure. Desires to proceed. - Discharge Medications Prescriptions: Ibuprofen [Motrin] 600 mg PO Q6HR PRN #40 tab PRN Reason: Cramping Oxycodone HCl/Acetaminophen [Percocet 5-325 mg Tablet] 1 each PO Q4H PRN #25 tablet PRN Reason: post op pain Home Medications: Pnv No.122/Iron/Folic Acid [ Multi Tablet] 1 tab PO DAILY 04/06/16 [ History] Ibuprofen [Motrin] 600 mg PO Q6HR PRN #40 tab 10/24/16 [Rx] Oxycodone HCl/Acetaminophen [Percocet 5-325 mg Tablet] 1 each PO Q4H PRN #25 tablet 10/24/16 [Rx] Allergies/Adverse Reactions: Allergies No Known Allergies Allergy (Verified 10/12/16 20:31) Data Procedures and tests throughout hospitalization: Laboratory Tests 10/23/16 06:25 WBC 13.7 H RBC 3.48 L Hgb 11.3 L Hct 32.7 L MCV 94.0 MCH 32.5 MCHC 34.6 RDW 12.2 Plt Count 195 MPV 11.8 Immature Gran % 1.2 Seg Neutrophils % 65.9 Lymphocytes % 26.4 Monocytes % 5.3 Eosinophils % 1.0 Basophils % 0.2 Neutrophils # 9.0 H Lymphocytes # 3.6 Monocytes # 0.7 Eosinophils # 0.1 Basophils # 0.0 - Impressions S/P , doing well. Appropriate lochia and cramping. Desires BPS. Date of admission: 10/23/16 05:56 Primary care physician: Cristin Zhu CNP - Patient Status Disposition: Home, Self-Care Condition: Good Functional capacity at discharge: independent ambulation Overall status at discharge: patient is progressing back to baseline - Discharge Instructions Follow Up With: Willy Moser MD [Partnered Physician] - Additional Instructions: please keep follow-up appt. 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 Attestation: Total time spent providing and/or coordinating discharge services: Exam - Constitutional Vitals: Temp Pulse Resp BP Pulse Ox 98.2 F 74 14 98/54 97 10/24/16 05:20 10/24/16 05:20 10/24/16 05:20 10/24/16 05:20 10/24/16 05:20 General appearance IM: A&O X 3 - Respiratory Respiratory exam: Present: CTAB - Cardiovascular Cardiovascular exam IM: Present: RRR - GI/Abdominal GI/Abdominal exam IM: normal bowel sounds - Uterus Position: 2 Fingers Below Umbilicus - Neurological Exam Neurological exam: oriented X3 - VTE Reasons for not Prescribing Prophylaxis: Treatment not Indicated - Low risk for VTE
[2016-10-24] MEDS ORDERED: Prenatal Vit/FA 1 EACH TABLET PO SCH (09:00)
[2016-10-24] MEDS ORDERED: Lidocaine -MPF 2% 2 ML VIAL ONE (09:24)
[2016-10-24] MEDS ORDERED: *HR* FentaNYL (PF) 100 MCG/2 ML VIAL ONE (09:24)
[2016-10-24] MEDS ORDERED: *HR* Midazolam HCl 2 MG/2 ML VIAL ONE (09:24)
[2016-10-24] MEDS ORDERED: *HR* Rocuronium Bromide 50 MG/5 ML VIAL ONE (09:24)
[2016-10-24] MEDS ORDERED: Dexamethasone 4 MG/ML VIAL ONE (09:25)
[2016-10-24] MEDS ORDERED: *HR* Propofol 200 MG/20 ML VIAL IVP ONE (09:25)
[2016-10-24] MEDS ORDERED: Ondansetron 4 MG/2 ML VIAL ONE (09:25)
--- NOTE | 2016-10-24 09:33 | Anesthesia Evaluation PreOp ---
Date of Encounter: 10/24/16 Time of Encounter: 09:31 - Past History Cardiac History: Denies any Significant Hx Pulmonary History: Denies Any Significant HX [place] History: Denies Any Significant HX Other Medical History: Denies Any Significant HX Anesthesia History: Past Anesthesia (none, no known family hx of anes complications) Alcohol Use: none Drug use: none Medications and Allergies Pnv No.122/Iron/Folic Acid [ Multi Tablet] 1 tab PO DAILY 04/06/16 [ History] Ibuprofen [Motrin] 600 mg PO Q6HR PRN #40 tab 10/24/16 [Rx] Oxycodone HCl/Acetaminophen [Percocet 5-325 mg Tablet] 1 each PO Q4H PRN #25 tablet 10/24/16 [Rx] Allergies No Known Allergies Allergy (Verified 10/12/16 20:31) - Meds/Allergy Pre-op Review Medications Reviewed: Yes Allergies Reviewed: Yes Beta Blockers on Current Med List: No Anesthesia Results - Labs 10/23/16 06:25 Anesthesia Exam Vital Signs/O2 Sat, Most Current Temp Pulse Resp BP Pulse Ox 98.1 F 72 16 112/74 99 10/24/16 08:16 10/24/16 08:16 10/24/16 08:16 10/24/16 08:16 10/24/16 08:16 Height: 1.75m Weight: 91kg NPO (# of Hours): >8 Pain Scale: 0 Pain Scale Used: Numeric (1 - 10) - HEENT Pupil (Motor): Pupils equal, EOMI Mallampati: II Teeth: Normal Oral Opening: Greater than 3 - [place] LOC: Oriented [place] Motor: Normal RUE, Normal LUE, Normal RLE, Normal LLE, Normal Face [place] Sensory: Normal: RUE, LUE, RLE, LLE, Face - Cardiac Rhythm: Regular - Pulmonary Breath Sounds: bilateral Clear Respiratory Effort: Symmetrical Anesthesia Assess/Plan ASA Score: 2 Modified Bertha Scale for Level of Consciousness: Cooperative, oriented, and tranquil Anesthetic Plan: General (r/b/a discussed, questions answered, consent obtained) Monitoring Plan: Standard Monitors Recovery Plan: PACU
[2016-10-24] MEDS ORDERED: Bupivacaine/EPI 1:200k 0.25%PF 10 ML VIAL INFILT ONE (09:40)
[2016-10-24] MEDS ORDERED: Neostigmine Methylsulfate 3 MG/3 ML SYRINGE ONE ×2 (10:32→10:48)
[2016-10-24] MEDS ORDERED: *HR* Meperidine 25 MG/ML SYRINGE IVP PRN (10:38)
[2016-10-24] MEDS ORDERED: Ondansetron 4 MG/2 ML VIAL IVP ONE (10:38)
[2016-10-24] MEDS ORDERED: *HR* HYDROmorphone (PF) 1 MG/ML SYRINGE IVP PRN (10:38)
[2016-10-24] MEDS ORDERED: Naloxone 0.4 MG/ML INJ IVP PRN (10:38)
[2016-10-24] MEDS ORDERED: *HR* Promethazine 25 MG/ML VIAL IVP PRN (10:38)
[2016-10-24] MEDS ORDERED: Ringers Solution, Lactated 1,000 ML IVC SCH (10:45)
[2016-10-24] MEDS ORDERED: *HR* HYDROmorphone 2 MG/ML SYRINGE ONE (10:59)
--- NOTE | 2016-10-24 11:00 | OB/GYN Procedure Note ---
OB-PROJECT CONTROL MANAGER: Procedure - Diagnosis Date of procedure: 10/24/16 Pre-op diagnosis: Desires permanent sterilization Post-op diagnosis: same - Procedure Procedure: Modified Polina Bilateral Partial Salpingectomy Surgeon: Willy Moser Anesthesia Type: General Estimated blood loss (cc): 10 Fluids: crystalloid Specimens collected: Bilateral Tubal Segments Disposition: PACU Narrative: 21-year-old 2 para 2 female who is adamant she desires tubal ligation. She is aware reversible alternatives. She is aware of operative risks and signed appropriate consent. Description procedure: Patient was taken operating room where general anesthesia was administered. She is prepped draped in usual sterile fashion bladder was drained of clear urine. Scalp was used to make small incision below the umbilicus this was sharply taken down the fascia fascia was incised and fascial incision was extended bilaterally peritoneum was tented upwards with hemostats and peritoneum was entered sharply peritoneal incision was extended with [employer] retractors. The left fallopian tube was easily identified and followed out to its fimbriated end approximately 3 cm segment left fallopian tube was double ligated with oh plain catgut suture. This knuckle of tube was resected and hemostasis was ensured. Right fallopian tube was then also easily identified and followed out to its fimbriated end. Again approximately 3-4 cm segment of the right fallopian tube was pulled upwards with [place] and the knuckle tube was double ligated with [place] plain catgut Suture and resected. Again hemostasis was ensured. Fascia was closed 0 Vicryl. Skin edges reapproximated with 4-0 Vicryl and Steri-Strips are applied large bandage was applied over the Steri-Strips. All sponge and instruments counts are correct patient was taken recovery in good condition.
[2016-10-24] MEDS ORDERED: Ketorolac 30 MG/ML VIAL IM ONE (11:29)
[2016-10-24] MEDS ORDERED: *HR* OxyCODONE/APAP 5/325 TABLET PO PRN (12:56)
[2016-10-24 14:23] VITALS: BP 120/85
== END 2016-10-24 14:50 | disposition home or self-care (01) | DRG 541 ==
LOC: 1NENULAB 10-23 05:56 → 1NENUOBS 10-23 15:31
PROVIDERS: ADMIT Advanced Practice Midwife; ATTEND Advanced Practice Midwife